=== PATIENT | female | born 1945 | race Caucasian/White ===

== ENCOUNTER → 2016-12-06 10:11 | Outpatient (CLI) | payer MEDICARE ==
[2012-12-29 01:08] VITALS: BMI 37.7
[2016-12-06 10:48] LABS: INR 1.56 (0.85-1.17); PROTIME 18.6 SECONDS (11.6-15.0)
[2016-12-07 14:21] LABS: ANA REFLEX - ANTICHROMATIN ABS <0.2 AI (0.0-0.9); ANA REFLEX - CENTROMERE B ABS <0.2 AI (0.0-0.9); ANA REFLEX - DBL STRANDED DNA <1 IU/mL (0-9); ANA REFLEX - DIRECT Positive (Negative); ANA REFLEX - JO-1 AB <0.2 AI (0.0-0.9); ANA REFLEX - SCL-70 <0.2 AI (0.0-0.9); ANA REFLEX - SJOGRENS AB SSA <0.2 AI (0.0-0.9); ANA REFLEX - SJOGRENS AB SSB <0.2 AI (0.0-0.9); ANA REFLEX - SMITH AB <0.2 AI (0.0-0.9)
== END | disposition home or self-care (01) ==
LOC: D.LABREF 10:11
PROVIDERS: Family Medicine
DX: M25.50 Pain in unspecified joint (principal)

== ENCOUNTER → 2016-12-19 18:25 | Outpatient (CLI) | payer MEDICARE ==
[2012-12-29 01:08] VITALS: BMI 37.7
[2016-12-19 19:51] LABS: INR 1.67 (0.85-1.17); PROTIME 19.7 SECONDS (11.6-15.0)
== END | disposition home or self-care (01) ==
LOC: D.LAB 18:25
PROVIDERS: Family Medicine
DX: Z51.81 Encounter for therapeutic drug level monitoring (principal); Z79.01 Long term (current) use of anticoagulants

== ENCOUNTER → 2017-01-05 17:23 | Outpatient (CLI) | payer MEDICARE ==
[2012-12-29 01:08] VITALS: BMI 37.7
[2017-01-05 17:35] LABS: INR 2.59 (0.85-1.17); PROTIME 27.9 SECONDS (11.6-15.0)
== END | disposition home or self-care (01) ==
LOC: D.LABREF 17:23
PROVIDERS: Family Medicine
DX: Z51.81 Encounter for therapeutic drug level monitoring (principal); Z79.01 Long term (current) use of anticoagulants

== ENCOUNTER → 2017-01-12 19:19 | Outpatient (CLI) | payer MEDICARE ==
[2012-12-29 01:08] VITALS: BMI 37.7
== END | disposition home or self-care (01) ==
LOC: D.LABREF 19:19
DX: J20.9 Acute bronchitis, unspecified (principal)

== ENCOUNTER → 2017-01-17 20:34 | Outpatient (CLI) | payer MEDICARE ==
[2012-12-29 01:08] VITALS: BMI 37.7
[2017-01-17 22:45] LABS: PROTIME 22.7 SECONDS (11.6-15.0)
== END | disposition home or self-care (01) ==
LOC: D.LABREF 20:34
PROVIDERS: Family Medicine
DX: Z79.01 Long term (current) use of anticoagulants (principal)

== ENCOUNTER → 2017-01-20 12:58 | Outpatient (CLI) | payer MEDICARE ==
[2012-12-29 01:08] VITALS: BMI 37.7
== END | disposition home or self-care (01) ==
LOC: D.CT 12:58
DX: Z86.711 Personal history of pulmonary embolism (principal)

== ENCOUNTER → 2017-02-15 20:41 | Outpatient (CLI) | payer MEDICARE ==
[2012-12-29 01:08] VITALS: BMI 37.7
[2017-02-15 22:58] LABS: INR 1.5 (0.85-1.17)
== END | disposition home or self-care (01) ==
LOC: D.LABREF 20:41
PROVIDERS: Family Medicine
DX: Z51.81 Encounter for therapeutic drug level monitoring (principal); Z79.01 Long term (current) use of anticoagulants

== ENCOUNTER → 2019-05-17 13:51 | Outpatient (CLI) | payer MEDICARE ==
[2012-12-29 01:08] VITALS: BMI 37.7
== END | disposition home or self-care (01) ==
LOC: D.HCCARDIO 13:51
PROVIDERS: ATTEND Internal Medicine Cardiovascular Disease
DX: I25.10 Atherosclerotic heart disease of native coronary artery without angina pectoris (principal)

== ENCOUNTER 2019-08-08 16:32 | Observation (INO) | payer MEDICARE ==
[~2019-08-08] VITALS: Ht 157.5 cm; Wt 83.2 kg
[2019-08-08] MEDS ORDERED: TOPROL XL25 MG PO (16:44)
[2019-08-08] MEDS ORDERED: METHOTREXATE2.5 MG PO (16:45)
[2019-08-08] MEDS ORDERED: COUMADIN3 MG PO (16:45)
[2019-08-08] MEDS ORDERED: FOLIC ACID1 MG PO (16:46)
[2019-08-08 17:24] VITALS: BP 170/72
[2019-08-08 17:26] LABS: BASOPHILS 0.5 % (0-2); EOSINOPHILS 3.9 % (0-7); HEMATOCRIT 44.3 % (36.0-48.0); HEMOGLOBIN 15.1 g/dL (12-16); IMMATURE GRANULOCYTES 0.5 % (0-5); LYMPHOCYTES 40.6 % (15-50); MCH 30.2 pg (26.0-34.0); MCHC 34.1 g/dL (31.0-37.0); MCV 88.6 fL (80.0-100.0); MEAN PLATELET VOLUME 10.3 fL (7.4-10.4); MONOCYTES 8.6 % (2-11); NEUTROPHILS 45.9 % (40-80); PLATELET COUNT 158 10x3/uL (130-400); WBC 4.4 10x3/uL (4.8-10.8)
[2019-08-08 17:49] LABS: ALBUMIN 3.3 g/dL (3.4-5.0); ALKALINE PHOSPHATASE 80 U/L (46-116); ALT (SGPT) 22 U/L (10-68); BILIRUBIN - TOTAL 0.32 mg/dL (0.2-1.3); CALC OSMOLALITY 291 mosm/kg (275-300); CALCIUM 8.8 mg/dL (8.5-10.1); CARBON DIOXIDE 27.4 mmol/L (21.0-32.0); CHLORIDE - SERUM 110 mmol/L (98-107); GLUCOSE 92 mg/dL (74-106); PROTEIN - SERUM 6.7 g/dL (6.4-8.2); SODIUM 145 mmol/L (136-145); UREA NITROGEN 20 mg/dL (7-18); eGFR NON AFRICAN AMERICAN 57 mL/min (90-120)
[2019-08-08 17:58] LABS: CKMB 1.3 U/L (0.0-3.6); CREATINE KINASE 66 UL (21-215); MAGNESIUM - SERUM 1.8 mg/dL (1.8-2.4)
[2019-08-08 17:59] LABS: TROPONIN-I < 0.017 ng/mL (0.000-0.060)
[2019-08-08 18:15] LABS: APTT 46.9 SECONDS (22.8-39.4); INR 4.01 (0.85-1.17); PROTIME 38.2 SECONDS (11.6-15.0)
[2019-08-08 18:16] LABS: D-DIMER-QUANTITATIVE < 0.27 ug/mLFEU (0.20-0.54)
--- NOTE | 2019-08-08 19:01 | NUR ---
REPORT TO DEANDRE COOPER. PT TO BE ADMITTED TO [facility], 2117.
[2019-08-08] MEDS ORDERED: COUMADIN7.5 MG PO (19:31)
[2019-08-08] MEDS ORDERED: TOPROL XL50 MG PO (19:32)
[2019-08-08 22:32] VITALS: BP 104/60; BMI 33.5
[2019-08-08 23:50] LABS: CKMB 0.7 U/L (0.0-3.6); CREATINE KINASE 68 UL (21-215)
[2019-08-08 23:53] LABS: TROPONIN-I < 0.017 ng/mL (0.000-0.060)
[2019-08-09 00:32] VITALS: BP 124/57
[2019-08-09 04:00] VITALS: BP 155/69
[2019-08-09 04:41] LABS: BASOPHILS 0.8 % (0-2); EOSINOPHILS 5.6 % (0-7); HEMOGLOBIN 13.4 g/dL (12-16); IMMATURE GRANULOCYTES 0.3 % (0-5); LYMPHOCYTES 46.9 % (15-50); MCH 29.7 pg (26.0-34.0); MCHC 33.5 g/dL (31.0-37.0); MCV 88.7 fL (80.0-100.0); MEAN PLATELET VOLUME 10.5 fL (7.4-10.4); MONOCYTES 13.6 % (2-11); NEUTROPHILS 32.8 % (40-80); PLATELET COUNT 133 10x3/uL (130-400); RBC 4.51 10x6/uL (4.00-5.40); RDW 15.2 % (11.5-14.5); WBC 3.9 10x3/uL (4.8-10.8)
[2019-08-09 05:11] LABS: APTT 52.1 SECONDS (22.8-39.4); INR 4.63 (0.85-1.17); PROTIME 42.9 SECONDS (11.6-15.0)
[2019-08-09 05:16] LABS: CALC OSMOLALITY 296 mosm/kg (275-300); CALCIUM 8.2 mg/dL (8.5-10.1); CARBON DIOXIDE 27.9 mmol/L (21.0-32.0); CHLORIDE - SERUM 115 mmol/L (98-107); CKMB 0.9 U/L (0.0-3.6); CREATINE KINASE 43 UL (21-215); CREATININE - SERUM 0.9 mg/dL (0.6-1.3); GLUCOSE 93 mg/dL (74-106); MAGNESIUM - SERUM 1.7 mg/dL (1.8-2.4); PHOSPHOROUS 3.3 mg/dL (2.5-4.9); POTASSIUM - SERUM 4.1 mmol/L (3.5-5.1); SODIUM 148 mmol/L (136-145); TROPONIN-I 0.017 ng/mL (0.000-0.060); UREA NITROGEN 22 mg/dL (7-18); eGFR NON AFRICAN AMERICAN 65 mL/min (90-120)
--- NOTE | 2019-08-09 07:01 | NUR ---
REPORT RECEIVED. WILL CONTINUE WITH POC. PT CURRENTLY LYING SUPINE. CALL LIGHT W/I REACH. PT IS RESTING AT THIS TIME. RR EVEN AND UNLABORED ON RA. R.WRIST PIV IS SALINE LOCKED. PT IS NPO UNTIL SEEN BY CARDIOLOGY. NO S/S OF DISTRESS NOTED. PT DENIES ANY NEEDS. WILL CTM.
[2019-08-09 08:50] VITALS: BP 140/51
[2019-08-09 09:16] VITALS: Ht 157.5 cm; Wt 83.2 kg
--- NOTE | 2019-08-09 10:16 | NUR ---
I have reviewed this patient and I concur with the Shift Assessment completed by the Licensed Practical Nurse today this shift.
[2019-08-09] MEDS ORDERED: ALDACTONE25 MG PO (11:00)
--- NOTE | 2019-08-09 11:46 | NUR ---
PT DISCHARGED HOME VIA WHEELCHAIR WITH FAMILY. PT SIGNED PROPER DISCHARGE INSTRUCTIONS AND REMOVED ALL VALUABLES FROM THE ROOM. PIV REMOVE WITH CATHETER TIP FULLY INTACT. TELEMETRY REMOVED AND RETURNED.
--- NOTE | 2019-08-12 08:39 | MORECARE ---
CASE MANAGEMENT DISCHARGE SUMMARY PATIENT: FAYE FISHER JORGE UNIT: [id number] ADM DATE: 08/08/19 AGE: 74 : 43 SEX: F ROOM/BED: D.3010 AUTHOR: SEUN PUGH PHYSICIAN: REFERRING PHYSICIAN: VICTOR M HERNANDEZ MD DATE OF SERVICE: 08/12/19 Discharge Plan Patient Name: [facility]E FISHER [facility] [facility] 1945 Planned Disposition: Home Anticipated Discharge Date: 08/09/19 Discharge Date: 08/09/2019 Expected LOS: 1 Initial Reviewer: [email or web address] Initial Review Date: 08/12/2019 Generated: 08/12/19 9:38 am Coverage Notice Reviewer: [email or web address] Perfecto Enriquez Notice Issued Date-Time: 08/08/2019 19:21 Notice Type: Medicare Outpatient Observation Notice Notice Delivered To: Patient Relationship to Patient: Email Designer Name: Delivery Method: HAND - Hand Delivered Dee Days: Prior Verbal Notification: Recipient Understood Notice: Yes Recipient Signature: Yes Med Rec Note Co-signed by Attending: Coverage Notice Comment: Patient Name: FAYE FISHER Page [phone] at 0839 All edits/amendments must be made on the electronic document DICTATION DATE: 08/12/19837 SEED CLEANING MANAGER: OBEY 08/12/1939 RPT#: [id number] DC DATE:08/09/19 STATUS: DIS IN [facility] [address] [place] [address] END OF REPORT
== END 2019-08-09 11:46 | disposition home or self-care (01) ==
LOC: D.ER 16:32 → D.M2 18:53 → OBSVTIME 18:54 → D.M2 08-09 11:46
PROVIDERS: Emergency Medicine; Family Medicine; ADMIT Emergency Medicine; ATTEND Emergency Medicine
DX: I20.9 Angina pectoris, unspecified (principal); I10 Essential (primary) hypertension; Z79.01 Long term (current) use of anticoagulants; Z95.1 Presence of aortocoronary bypass graft; J38.01 Paralysis of vocal cords and larynx, unilateral; M06.9 Rheumatoid arthritis, unspecified; R07.9 Chest pain, unspecified; I24.8 Other forms of acute ischemic heart disease; Z86.711 Personal history of pulmonary embolism

== ENCOUNTER → 2019-08-20 10:14 | Outpatient (CLI) | payer MEDICARE ==
[2019-08-09 09:16] VITALS: BMI 33.5
[~2019-08-20 10:14] MED LIST: ALDACTONE25 MG PO; COUMADIN3 MG PO; COUMADIN7.5 MG PO; FOLIC ACID1 MG PO; METHOTREXATE2.5 MG PO; TOPROL XL25 MG PO; TOPROL XL50 MG PO
== END | disposition home or self-care (01) ==
LOC: D.HCCARDIO 08-15 10:30
PROVIDERS: ATTEND Internal Medicine Cardiovascular Disease
DX: I25.10 Atherosclerotic heart disease of native coronary artery without angina pectoris (principal)

== ENCOUNTER → 2021-02-01 13:11 | Outpatient (CLI) | payer MEDICARE ==
[2019-08-09 09:16] VITALS: BMI 33.5
== END | disposition home or self-care (01) ==
LOC: D.RAD 13:00
PROVIDERS: ATTEND Family Medicine
DX: R13.12 Dysphagia, oropharyngeal phase (principal)